=== PATIENT | male | born 1985 | race Caucasian/White ===

== ENCOUNTER 2020-01-27 09:59 | Outpatient (CLI) | payer SELFPAY ==
--- NOTE | 2020-01-27 10:14 | XR_ITS ---
WS: [id number] KUB, 01/27/2020 Clinical Data: CONSTIPATION/FLANK PAIN Comparison: None. Findings: No abnormal intraabdominal masses are seen. There is no dilatated small bowel or evidence of obstruc tion. There is an irregular ossification overlying the right side of the sacrum measuring 0.5 cm. This coul d represent a distal right ureteral calculus. The right kidney is obscured by overlying fecal materia l and the left kidney is partly obscured by gas. XR/XR KUB [id number] Impression: Possible distal right ureteral calculus.
== END 2020-01-27 10:00 | disposition home or self-care (01) ==
LOC: RAD 10:03
PROVIDERS: PCP Nurse Practitioner Family; Visit Provider Nurse Practitioner Family
DX: K59.00 Constipation, unspecified (principal); R10.9 Unspecified abdominal pain
CPT/HCPCS: 74018

== ENCOUNTER 2020-01-28 14:13 | Outpatient (CLI) | payer SELFPAY ==
--- NOTE | 2020-01-28 14:30 | XR_ITS ---
WS: [id number] KUB, 01/28/2020 Clinical Data: URETERAL STONE Comparison: KUB, 01/27/2020. Findings: No abnormal intraabdominal masses are seen. There is no dilatated small bowel or evidence of obstruc tion. The irregular calcification overlying the right side of the sacrum has not changed. Again this may re present a distal right ureteral calculus XR/XR KUB [id number] Impression: No change in possible distal right ureteral calculus.
== END 2020-01-28 14:14 | disposition home or self-care (01) ==
LOC: RAD 14:15
PROVIDERS: PCP Nurse Practitioner Family; Visit Provider Nurse Practitioner Family
DX: N20.1 Calculus of ureter (principal)
CPT/HCPCS: 74018; 80053; 81003

== ENCOUNTER → 2021-10-09 14:16 | Outpatient (BNVA) | payer OTHER, SELFPAY | PROVIDERS: PCP Nurse Practitioner Family; Visit Provider Nurse Practitioner Family | DX: R21 Rash and other nonspecific skin eruption (principal) | CPT/HCPCS: 88304; 88312 ==

== ENCOUNTER 2022-03-29 10:43 | Emergency (ER) | payer OTHER, SELFPAY ==
[2022-03-29 10:58] VITALS: BP 149/96; PULSE 76; RESP 16; TEMP 36.7; O2SAT 99; BMI 32.1
--- NOTE | 2022-03-29 11:08 | XRR_ITS ---
PROCEDURE INFORMATION: Exam: XR Lumbosacral Spine Exam date and time: 03/29/2022 11:12 AM Age: 36 years old Clinical indication: Low back pain; Patient HX: Back pain for 2 mos no trauma TECHNIQUE: Imaging protocol: Radiologic exam of the lumbosacral spine. Views: 2 or 3 views. COMPARISON: CR XR KUB [id number] 01/28/2020 2:20 PM FINDINGS: Bones/joints: Lumbar curvature and alignment is unremarkable. There are mild degenerative changes L5-S1 with some disc space narrowing and facet arthrosis. Remaining disc heights maintained. Osseous structures otherwise unremarkable. There is no fracture or spondylolisthesis. Pedicles are intact. Soft tissues: Paraspinal soft tissues are unremarkable. XR/XR lumbar spine 2-3V* [id number] IMPRESSION: Mild degenerative changes L5-S1. No acute bony abnormalities
[2022-03-29 11:35] LABS: Add Urine Microscopic? NO; Charge for UA Resulting for Rev
--- NOTE | 2022-03-29 11:50 | ED_ITS ---
Documented by User: [email or web address] Cornejo 03/29/22 13:28 HPI - Back Pain/Injury General: Chief Complaint: Back Pain/Injury Stated Complaint: back pain Time Seen by Provider: 03/29/22 10:52 History of Present Illness: Patient is having low back pain. Patient reports that approximately 2 months ago he was shoveling dirt/rocks under his tire for traction and started having back pain. He reports that he has been to a series of numerous physicians and also chiropractors. He reports that he has tried muscle relaxants and NSAIDs and nothing seems to be helping. He reports that there was a brief time that he was slightly better after some steroids initially but other than that he is really struggling to even be able to work and provide for his family. He reports that the pain is excruciating and it radiates down his right buttocks and the anterior and posterior part of his right leg. He reports that he is having some tingling and numbness of his toes on his right foot. He denies any saddle anesthesia, loss of bowel or bladder continence. He denies fever, chills, nausea, vomiting. Associated symptoms: Deny abdominal pain, chills, dysuria, fever(s), nausea, urinary urgency or vomiting Review of Systems Const: Denies: fever(s) or chills Card: Denies: chest pain, palpitations or irregular heart rhythm Resp: Denies: dyspnea, productive cough or non-productive cough GI: Denies: abdominal pain, nausea or vomiting : Denies: flank pain, difficulty urinating, dysuria, urinary frequency, urinary urgency or urinary hesitancy Musc: Reports: back pain and extremity pain Neuro: Reports: numbness in extremities (Right toes go numb and are tingling off and on.) PFSH ED PFSH: Medical History Anxiety and depression Hypertension Prostatitis Family History Mother Diabetes Father Cancer CAD (coronary artery disease) Social History Smoking and tobacco status: former smoker Alcohol intake: never Marital status: Current occupational status: employed Physical Exam Const: COMMON NORMALS: patient oriented x3 and alert OTHER: Upon initial exam, patient is in acute pain and unable to find a position of comfort. Neck/C-Spine: COMMON NORMALS: no JVD Resp: COMMON NORMALS: normal respiratory effort, No use of accessory muscles and clear to auscultation bilaterally AUSCULTATION: clear to auscultation bilaterally Cardio: COMMON NORMALS: no JVD, regular rate, regular rhythm, S1 normal heart sound present and S2 normal heart sound present RATE: regular rate RHYTHM: regular rhythm HEART SOUNDS: S1 normal heart sound present and S2 normal heart sound present GI: COMMON NORMALS: Normal to inspection, nondistended, normoactive bowel sounds present, Soft to palpation and non-tender PALPATION: Yes Soft to palpation : COMMON NORMALS: Yes no CVA tenderness BLADDER/KIDNEY EXAM: Yes no CVA tenderness Back/Pelvis: COMMON NORMALS: no CVA tenderness OTHER: No lumbar vertebral point tenderness appreciated. Just to the right of the lumbar spine approximately L4 there is paraspinal muscular tension in this area is point tender and reproduces pain complaint with palpation. Patient is walking with a limp holding his back forward flexed posture. Strength equal bilateral lower extremities. Decreased sensation right foot phalanges and lateral lower leg on right foot. pedal pulse palpable. Sensation changes consistent with radiculopathy L4-S1. Neuro: COMMON NORMALS: patient oriented x3 SENSORIUM/ORIENTATION: Yes alert Course Vital Signs: Vital signs: Vital Signs Temperature 98.1 F 03/29/22 10:58 Pulse Rate 76 03/29/22 10:58 Respiratory Rate 18 03/29/22 12:38 Blood Pressure 149/96 03/29/22 10:58 Pulse Oximetry 99 03/29/22 10:58 MDM - Back Pain/Injury Medical Decision Making Differentials include low back strain, lumbar radiculopathy, sciatica, bulging or herniated disc, UTI, renal stone Urine dip is negative?lower suspicion for UTI or renal stone X-ray lumbar spine mild degenerative changes L5-S1 with no acute bony abnormalities Patient is treated with Norflex and morphine and pain level reduced to where he is able to sit more comfortably in the chair. Patient will be discharged home with muscle relaxant medication also try gabapentin to help with the nerve type pain that he is experiencing. Case management referral to set him up with a primary care provide and refer to ortho/spine. Schedule patient for outpatient lumbar MRI with contrast to further evaluate for disc issue. Patient has tried numerous conservative measures and medications and this has been ongoing for 2 months and worsening. This is affecting patient's life and ability to work. Advised the patient to follow-up with the primary care provider for further evaluation and management of care. Return to the ER for new or worsening symptoms. Labs Radiology Impressions Lumbar Spine X-Ray 03/29/22 11:08 IMPRESSION: Mild degenerative changes L5-S1. No acute bony abnormalities Laboratory Results Urine Color Yellow (Yellow) 03/29/22 11:25 Urine Appearance Clear (CLEAR) 03/29/22 11:25 Urine pH 8 (5-7) H 03/29/22 11:25 Ur Specific [place] 1.015 (1.005-1.030) 03/29/22 11:25 Urine Protein Neg (Negative) 03/29/22 11:25 Urine Glucose (UA) Norm (Normal) 03/29/22 11:25 Urine Ketones Negative (Negative) 03/29/22 11:25 Urine Blood Neg (Negative) 03/29/22 11:25 Urine Nitrate Negative (Negative) 03/29/22 11:25 Urine Bilirubin Neg (Negative) 03/29/22 11:25 Prot Sulfosalicylic Acd Negative (Negative) 03/29/22 11:25 Urine Urobilinogen Neg mg/dL (Negative) 03/29/22 11:25 Ur Leukocyte Esterase Negative (Negative) 03/29/22 11:25 Discharge Plan Discharge Patient Disposition: Home Clinical Impression: Lumbar radiculopathy, Sciatica Condition: Stable Prescriptions: New orphenadrine citrate 100 mg tablet extended release 100 mg PO BID PRN (Reason: muscle spasm) Qty: 7 0RF gabapentin 100 mg capsule 100 mg PO BID Qty: 14 0RF No Action lisinopril 30 mg tablet 30 mg PO DAILY clobetasol 0.05 % ointment 1 applic topical BID 14 Days Qty: 60 1RF Rx Instructions: Use for no more than 2 weeks per month. Not for use on face/skin folds. 340 B if needed. itraconazole 100 mg capsule 100 mg PO BID 14 Days Qty: 28 0RF Rx Instructions: must administer with a meal/food loratadine [Allergy Relief (loratadine)] 10 mg tablet 10 mg PO DAILY Qty: 30 0RF fluticasone propionate 50 mcg/actuation spray,suspension 2 spray intranasal DAILY Qty: 16 0RF Rx Instructions: administer into each nostril Aquaphor Healing 41 % ointment 1 applic topical DAILY PRN (Reason: dry skin) Qty: 20 0RF Rx Instructions: Apply topical steriod cream & apply Aquaphor to areas that steriod was applied to seal. Discharge Orders: Discharge ED (Routine); Ordered 03/29/22 Ordered By: Beth Kimball Discharge Diet: Usual diet Discharge Activity: Increase activity as tolerated Patient Instructions: Lumbar Radiculopathy (ED) Activity Restrictions/Additional Instructions: Take medications as directed as needed. Follow-up with orthopedic sales merchandising specialist, established with primary care provider. Return to the ER as needed for new or worsening symptoms Coding Level of Care Code ED Embedded Software Test Engineer for Chg Fwd Exam Detailed Documented by User: Fredy Pina DO 03/29/22 18:15 HPI - Back Pain/Injury General: Chief Complaint: Back Pain/Injury Stated Complaint: back pain Time Seen by Provider: 03/29/22 10:52 [facility] ED PFSH: Medical History Anxiety and depression Hypertension Prostatitis Family History Mother Diabetes Father Cancer CAD (coronary artery disease) Social History Smoking and tobacco status: former smoker Alcohol intake: never Marital status: Current occupational status: employed Course Vital Signs: Vital signs: Vital Signs Temperature 98.1 F 03/29/22 10:58 Pulse Rate 76 03/29/22 10:58 Respiratory Rate 18 03/29/22 12:38 Blood Pressure 149/96 03/29/22 10:58 Pulse Oximetry 99 03/29/22 10:58 MDM - Back Pain/Injury Medical Decision Making Differentials include low back strain, lumbar radiculopathy, sciatica, bulging or herniated disc, UTI, renal stone Urine dip is negative?lower suspicion for UTI or renal stone X-ray lumbar spine mild degenerative changes L5-S1 with no acute bony abnormalities Patient is treated with Norflex and morphine and pain level reduced to where he is able to sit more comfortably in the chair. Patient will be discharged home with muscle relaxant medication also try gabapentin to help with the nerve type pain that he is experiencing. Case management referral to set him up with a primary care provide and refer to ortho/spine. Schedule patient for outpatient lumbar MRI with contrast to further evaluate for disc issue. Patient has tried numerous conservative measures and medications and this has been ongoing for 2 months and worsening. This is affecting patient's life and ability to work. Advised the patient to follow-up with the primary care provider for further evaluation and management of care. Return to the ER for new or worsening symptoms. Chart reviewed and patient discussed with midlevel. Agree with assessment and plan. Labs Radiology Impressions Lumbar Spine X-Ray 03/29/22 11:08 IMPRESSION: Mild degenerative changes L5-S1. No acute bony abnormalities Laboratory Results Urine Color Yellow (Yellow) 03/29/22 11:25 Urine Appearance Clear (CLEAR) 03/29/22 11:25 Urine pH 8 (5-7) H 03/29/22 11:25 Ur Specific [place] 1.015 (1.005-1.030) 03/29/22 11:25 Urine Protein Neg (Negative) 03/29/22 11:25 Urine Glucose (UA) Norm (Normal) 03/29/22 11:25 Urine Ketones Negative (Negative) 03/29/22 11:25 Urine Blood Neg (Negative) 03/29/22 11:25 Urine Nitrate Negative (Negative) 03/29/22 11:25 Urine Bilirubin Neg (Negative) 03/29/22 11:25 Prot Sulfosalicylic Acd Negative (Negative) 03/29/22 11:25 Urine Urobilinogen Neg mg/dL (Negative) 03/29/22 11:25 Ur Leukocyte Esterase Negative (Negative) 03/29/22 11:25 Discharge Plan Discharge Patient Disposition: Home Clinical Impression: Lumbar radiculopathy, Sciatica Condition: Stable Prescriptions: New orphenadrine citrate 100 mg tablet extended release 100 mg PO BID PRN (Reason: muscle spasm) Qty: 7 0RF gabapentin 100 mg capsule 100 mg PO BID Qty: 14 0RF No Action lisinopril 30 mg tablet 30 mg PO DAILY clobetasol 0.05 % ointment 1 applic topical BID 14 Days Qty: 60 1RF Rx Instructions: Use for no more than 2 weeks per month. Not for use on face/skin folds. 340 B if needed. itraconazole 100 mg capsule 100 mg PO BID 14 Days Qty: 28 0RF Rx Instructions: must administer with a meal/food loratadine [Allergy Relief (loratadine)] 10 mg tablet 10 mg PO DAILY Qty: 30 0RF fluticasone propionate 50 mcg/actuation spray,suspension 2 spray intranasal DAILY Qty: 16 0RF Rx Instructions: administer into each nostril Aquaphor Healing 41 % ointment 1 applic topical DAILY PRN (Reason: dry skin) Qty: 20 0RF Rx Instructions: Apply topical steriod cream & apply Aquaphor to areas that steriod was applied to seal. Discharge Orders: Discharge ED (Routine); Ordered 03/29/22 Ordered By: Beth Kimball Discharge Diet: Usual diet Discharge Activity: Increase activity as tolerated Patient Instructions: Lumbar Radiculopathy (ED) Activity Restrictions/Additional Instructions: Take medications as directed as needed. Follow-up with orthopedic sales merchandising specialist, established with primary care provider. Return to the ER as needed for new or worsening symptoms Coding Level of Care Code ED Embedded Software Test Engineer for Sandeep Fwanne marie Exam Detailed
[2022-03-29 11:54] LABS: Bilirubin Urine Neg (Negative); Blood Urine Neg (Negative); Glucose Urine UA Norm (Normal); Ketones Urine Negative (Negative); Leukocyte Esterase Urine Negative (Negative); Nitrate Urine Negative (Negative); Protein Urine Neg (Negative); Specific Gravity, Urine 1.015 (1.005-1.030); Sulfosalicylic Acid Urine Negative (Negative); Urine Appearance Clear (CLEAR); Urine Color Yellow (Yellow); Urobilinogen Urine Neg (Negative); pH Urine 8 (5-7)
[2022-03-29] MEDS: orphenadrine 30 mg/mL Inj 2 mL 60 MG IM (12:05)
[2022-03-29 12:38] VITALS: RESP 18
[2022-03-29] MEDS: morphine 4 mg/mL SDV 1 mL IM (12:38)
[2022-03-29] MEDS: ondansetron 4 MG Tablet PO (12:38)
[2022-03-29] MEDS: dexamethasone 10 mg/mL INJ IM (12:58)
--- NOTE | 2022-03-29 13:21 | DCPLANNER ---
Addendum entered by Abby Rollins 05/16/22 08:05: Patient had an outpatient MRI scheduled - patient did attend appointment Patient had a follow up appointment scheduled with ortho - patient did attend appointment. Addendum entered by Abby Rollins 04/03/22 14:40: Patient has a follow up appointment scheduled for Sunday, May 01, [address]22 at 8:[address] Chavez at ortho. Clinic will call patient with appointment information. Addendum entered by Abby Rollins 03/29/22 13:23: clinical operations manager also had message to schedule a follow up appointment for patient with ortho. clinical operations manager sent patients information to the front office staff at ortho. Patients information will be printed and reviewed. Clinic will call patient with appointment information. Original Note: clinical operations manager had message to schedule an outpatient MRI for patient. clinical operations manager faxed signed order to centralized scheduling, who will call patient with appointment information.
== END 2022-03-29 13:29 | disposition home or self-care (01) ==
PROVIDERS: Emergency Provider Nurse Practitioner Family
DX: M54.16 Radiculopathy, lumbar region (principal); M54.30 Sciatica, unspecified side; I10 Essential (primary) hypertension; Z87.891 Personal history of nicotine dependence
CPT/HCPCS: 72100; 81003; 96372; 99284; J1100; J2270; J2360; Q0162

== ENCOUNTER 2022-04-17 10:38 | Outpatient (CLI) | payer OTHER, SELFPAY ==
--- NOTE | 2022-04-17 | MR_ITS ---
WS: [id number] MRI LUMBAR SPINE WITH CONTRAST TECHNIQUE: Sagittal T1, T2 and STIR imaging. Axial T1 and T2 imaging. Post gadolinium imaging was obt ained. CLINICAL INFORMATION: COMPARISON: None. FINDINGS: Mild lumbar curve. No acute compression. Annular bulging L3-L5. 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 L1-L2: Mild facet arthropathy. Spinal canal and foramen are patent. L2-L3: Mild annular bulging. Mild facet arthropathy. Spinal canal and foramen are patent. L3-L4: Mild annular bulging with a shallow central disc protrusion. Tiny annular fissure. Mild centra l canal stenosis. Slight impingement traversing L4 nerve roots bilaterally. Mild facet arthropathy. M ild RIGHT greater than LEFT foraminal narrowing. Tiny RIGHT foraminal protrusion. L4-L5: Mild annular bulging. Shallow central disc protrusion extending into the RIGHT subarticular re cess. Moderate central canal stenosis. Impingement on the traversing L5 nerve roots. Foramen are trejo nt. Mild facet arthropathy. L5-S1: RIGHT pericentral disc protrusion impinges the traversing RIGHT greater than LEFT S1 nerve sukh ts. Mild facet arthropathy. Mild RIGHT foraminal narrowing. LEFT foramen is patent. Visualized pelvic bony structures: Normal. Paravertebral soft tissues: Normal. MR/MR lumbar spine wo/w con [id number] IMPRESSION: 1. Mild lumbar curve. No acute compression. 2. Central disc protrusion L4-L5 with moderate central canal stenosis. This im pinges the traversing L5 nerve roots bilaterally. In addition, this extends to the RIGHT subarticular recess with slight caudal migration of disc material. 3. Small RIGHT subarticular disc protrusion impinges the traversing RIGHT S1 n erve root in the subarticular recess. Recommend correlation RIGHT S1 nerve root symptoms. 4. Mild central canal stenosis L3-L4. Slight impingement on the traversing L4 nerve roots LEFT greater than RIGHT. Tiny RIGHT foraminal protrusion with mild RIGHT foraminal narrowing at this level. 5. Mild facet arthropathy L3-L4 L4-L5 and L5-S1.
== END 2022-04-17 10:39 | disposition home or self-care (01) ==
LOC: RAD 10:39
PROVIDERS: Visit Provider Nurse Practitioner Family
DX: M54.16 Radiculopathy, lumbar region (principal)
CPT/HCPCS: 72158; A9577

== ENCOUNTER → 2022-05-01 08:10 | Outpatient (BNVA) | payer OTHER, SELFPAY | PROVIDERS: Referring Provider Nurse Practitioner Family; Visit Provider Orthopaedic Surgery | DX: M51.37 Other intervertebral disc degeneration, lumbosacral region (principal) | CPT/HCPCS: 72120 ==

== ENCOUNTER → 2022-05-17 09:04 | Outpatient (BNVA) | payer OTHER, SELFPAY | PROVIDERS: PCP Clinical Nurse Specialist Adult Health; Visit Provider Clinical Nurse Specialist Adult Health | DX: I10 Essential (primary) hypertension (principal); L30.9 Dermatitis, unspecified; F41.9 Anxiety disorder, unspecified; F32.A Depression, unspecified | CPT/HCPCS: 84443 ==

== ENCOUNTER → 2023-06-11 10:53 | Outpatient (BNVA) | payer OTHER, SELFPAY | PROVIDERS: PCP Clinical Nurse Specialist Adult Health; Visit Provider Clinical Nurse Specialist Adult Health | DX: Z00.00 Encounter for general adult medical examination without abnormal findings (principal); I10 Essential (primary) hypertension | CPT/HCPCS: 80053; 80061; 83036; 84443; 85025 ==

== ENCOUNTER → 2024-11-05 08:58 | Outpatient (BNVA) | payer OTHER, SELFPAY | PROVIDERS: PCP Clinical Nurse Specialist Adult Health; Visit Provider Clinical Nurse Specialist Adult Health | DX: I10 Essential (primary) hypertension (principal) | CPT/HCPCS: 80053; 80061; 85025 ==